=== PATIENT | male | born 1955 | race Asian ===

== ENCOUNTER 2017-11-15 02:55 | Emergency (ER) | payer OTHER ==
[~2017-11-15] VITALS: Ht 180.3 cm; Wt 82.5 kg
[2017-11-15 03:12] VITALS: BP 128/76; Ht 180.3 cm; Wt 82.5 kg
== END 2017-11-15 04:21 | disposition left against medical advice (07) ==
LOC: ED 02:55
DX: Z53.21 Procedure and treatment not carried out due to patient leaving prior to being seen by health care provider (principal)